=== PATIENT | female | born 1990 | race Caucasian/White ===

== ENCOUNTER 2017-01-06 02:34 | Emergency (ER) | payer SELFPAY ==
[~2017-01-06] VITALS: Ht 162.6 cm; Wt 61.2 kg
[2017-01-06 02:59] VITALS: BP 124/84
[2017-01-06] MEDS ORDERED: LIDOCAINE 1% / SOD BICARB 8.4% 20 ML VIAL. IJ ONE ×2 (04:17→04:30)
[2017-01-06] MEDS ORDERED: CEPH-264 PO (04:51)
[2017-01-06] MEDS ORDERED: SULF1TAB24 PO (04:51)
[2017-01-06] MEDS ORDERED: IBUP-1060 PO (04:51)
--- NOTE | 2017-01-06 04:51 | PHYS DOC ---
Past Medical History Past Medical History: Bipolar, Depression Additional Past Medical Histor: ADD Past Surgical History: Other Additional Past Surgical Histo: EAR TUBES Alcohol Use: None Drug Use: Amphetamine, Heroin, Marijuana Adult General Chief Complaint Chief Complaint: SKIN RASH/ABSCESS [facility] HPI This is a 26-year-old female who admits to injecting herself with illicit drugs who developed a large area swelling and redness to her right forearm that is consistent with an abscess and cellulitis. She denies any significant past medical history. She denies any history of MRSA. She rates her pain an 8 out of 10 all localized to the right forearm. She denies any nausea or vomiting. She denies any fever or chills. Review of Systems Review of Systems Constitutional: Denies fever or chills [] Eyes: Denies change in visual acuity, redness, or eye pain [] HENT: Denies nasal congestion or sore throat [] Respiratory: Denies cough or shortness of breath [] Cardiovascular: No additional information not addressed in HPI [] GI: Denies abdominal pain, nausea, vomiting, bloody stools or diarrhea [] : Denies dysuria or hematuria [] Musculoskeletal: Denies back pain or joint pain [] Integument: Denies rash or skin lesions [] Neurologic: Denies headache, focal weakness or sensory changes [] Endocrine: Denies polyuria or polydipsia [] Current Medications Current Medications Current Medications Medications (Trade) Dose Ordered Sig/[facility] Start Time Stop Time Status Last Admin Dose Admin Ketorolac Tromethamine (Toradol Im) 60 mg 1X ONCE 01/06/17 05:00 01/06/17 05:01 DC 01/06/17 04:51 60 MG Lidocaine/Sodium Bicarbonate (Buffered Lidocaine 1%) 20 ml 1X ONCE 01/06/17 04:30 01/06/17 04:31 DC 01/06/17 04:30 20 ML Allergies Allergies Allergies Coded Allergies Type Severity Reaction Last Updated Verified No Known Drug Allergies 02/09/16 No Physical Exam Physical Exam Constitutional: Well developed, well nourished, no acute distress, non-toxic appearance. [] HENT: Normocephalic, atraumatic, bilateral external ears normal, oropharynx moist, no oral exudates, nose normal. [] Eyes: PERRLA, EOMI, conjunctiva normal, no discharge. [] Neck: Normal range of motion, no tenderness, supple, no stridor. [] Cardiovascular:Heart rate regular rhythm, no murmur [] Lungs & Thorax: Bilateral breath sounds clear to auscultation [] Abdomen: Bowel sounds normal, soft, no tenderness, no masses, no pulsatile masses. [] Skin: Warm, dry, no erythema, no rash. [] Back: No tenderness, no CVA tenderness. [] Extremities: Large area of redness and swelling to the right forearm c/w with an abscess and cellulitis, no cyanosis, no clubbing, ROM intact, no edema. [] Neurologic: Alert and oriented X 3, normal motor function, normal sensory function, no focal deficits noted. [] Psychologic: Affect normal, judgement normal, mood normal. [] Current Patient Data Vital Signs Vital Signs Date Time Temp Pulse Resp B/P Pulse Ox O2 Delivery O2 Flow Rate FiO2 01/06/17 02:59 98.5 92 16 124/84 100 Room Air 98.5 EKG EKG [] Radiology/Procedures Radiology/Procedures [] Course & Med Decision Making Course & Med Decision Making Pertinent Labs and Imaging studies reviewed. (See chart for details) This 26-year-old female who has a abscess and cellulitis on her right forearm had an incision and drainage of the abscess with a packing placed. I will be also placing her on Bactrim and Keflex due to the source of the infection. She will follow closely with her primary care doctor in the next 48 hours for wound re-eval and gauze removal. I gave her strict instruction to return if her swelling should worsen or her redness should increase in size. There is no indication to perform any laboratory workup at this time. Dragon Disclaimer Dragon Disclaimer This electronic medical record was generated, in whole or in part, using a voice recognition dictation system. Incision and Drainage Indication: abscess Procedure: The patient was positioned appropriately. Local anesthesia was approximately 7 ml of 1% percent buffered lidocaine . An incision was then made over the apex of the lesion and a large amount of serosanguineous and purulent material was expressed. The drainage cavity was irrigated and packed with sterile gauze. The patients tetanus status updated as needed. The patient tolerated the procedure well. Complications: none. Departure Departure Impression: Primary Impression: Abscess Disposition: 01 HOME, SELF-CARE Admitting Physician: Other Condition: STABLE Referrals: NO PCP (PCP) Patient Instructions: Abscess, Care After Additional Instructions: Please follow up with your primary doctor in the next 2 days to have your wound rechecked. Take your antibiotic as prescribed. Return to the ER if you develop any worsening of your pain or notice any fever or increase in redness or swelling. Scripts Cephalexin (Keflex)500 Mg [id number] Mg PO QID #40 CAP Prov:URMILA GUIDRY DO 01/06/17 Sulfamethoxazole/Trimethoprim (Bactrim Ds Tablet)1 Each Tablet1 Tab PO BID #20 TAB Prov:URMILA GUIDRY DO 01/06/17 Ibuprofen 800 Mg [id number] Mg PO PRN Q6HRS PRN INFLAMMATION #20 TAB Prov:URMILA GUIDRY DO 01/06/17 URMILA GUIDRY DO Jan 06, 2017 04:51
[2017-01-06] MEDS ORDERED: KETOROLAC TROMETHAMINE 60 MG/2 ML SYRINGE. IM ONE (05:00)
== END 2017-01-06 05:17 | disposition home or self-care (01) ==
LOC: ER 02:34
DX: L02.413 Cutaneous abscess of right upper limb (principal); F31.9 Bipolar disorder, unspecified; F32.9 Major depressive disorder, single episode, unspecified; F98.8 Other specified behavioral and emotional disorders with onset usually occurring in childhood and adolescence; F12.10 Cannabis abuse, uncomplicated; F15.10 Other stimulant abuse, uncomplicated; F11.10 Opioid abuse, uncomplicated; Z96.22 Myringotomy tube(s) status
CPT/HCPCS: 10060; 96372; 99283; J1885

== ENCOUNTER 2017-07-05 02:36 | Emergency (ER) | payer SELFPAY ==
[~2017-07-05] VITALS: Ht 162.6 cm; Wt 59.0 kg
[~2017-07-05 02:36] MED LIST: CEPH-264 PO; IBUP-1060 PO; SULF1TAB24 PO
[2017-07-05 02:50] VITALS: BP 125/89
[2017-07-05] MEDS ORDERED: SMZ/TMP 800/160MG TABLET. PO ONE (03:45)
[2017-07-05] MEDS ORDERED: IBUPROFEN 600 MG TABLET. PO ONE (03:45)
[2017-07-05] MEDS ORDERED: SULF1TAB24 PO (03:55)
[2017-07-05] MEDS ORDERED: IBUP-1007 PO (03:55)
--- NOTE | 2017-07-05 03:55 | PHYS DOC ---
Past Medical History Past Medical History: Bipolar, Depression Additional Past Medical Histor: ADD Past Surgical History: Other Additional Past Surgical Histo: EAR TUBES Alcohol Use: None Drug Use: Amphetamine, Heroin, Marijuana, Methamphetamine Adult General Chief Complaint Chief Complaint: MULTIPLE COMPLAINTS [facility] HPI Patient is a 27 year old [f__sex] who presents with [] Review of Systems Review of Systems Constitutional: Denies fever or chills [] Eyes: Denies change in visual acuity, redness, or eye pain [] HENT: Denies nasal congestion or sore throat [] Respiratory: Denies cough or shortness of breath [] Cardiovascular: No additional information not addressed in HPI [] GI: Denies abdominal pain, nausea, vomiting, bloody stools or diarrhea [] : Denies dysuria or hematuria [] Musculoskeletal: Denies back pain or joint pain [] Integument: Denies rash or skin lesions [] Neurologic: Denies headache, focal weakness or sensory changes [] Endocrine: Denies polyuria or polydipsia [] Current Medications Current Medications Current Medications Medications (Trade) Dose Ordered Sig/[facility] Start Time Stop Time Status Last Admin Dose Admin Ibuprofen (Motrin) 600 mg 1X ONCE 07/05/17 03:45 07/05/17 03:46 UNV 07/05/17 03:47 600 MG Trimethoprim/ Sulfamethoxazole (Bactrim Ds) 2 tab 1X ONCE 07/05/17 03:45 07/05/17 03:46 UNV 07/05/17 03:47 2 TAB Allergies Allergies Allergies Coded Allergies Type Severity Reaction Last Updated Verified No Known Drug Allergies 02/09/16 No Physical Exam Physical Exam Constitutional: Well developed, well nourished, no acute distress, non-toxic appearance. [] HENT: Normocephalic, atraumatic, bilateral external ears normal, oropharynx moist, no oral exudates, nose normal. [] Eyes: PERRLA, EOMI, conjunctiva normal, no discharge. [] Neck: Normal range of motion, no tenderness, supple, no stridor. [] Cardiovascular:Heart rate regular rhythm, no murmur [] Lungs & Thorax: Bilateral breath sounds clear to auscultation [] Abdomen: Bowel sounds normal, soft, no tenderness, no masses, no pulsatile masses. [] Skin: Warm, dry, no erythema, no rash. [] Back: No tenderness, no CVA tenderness. [] Extremities: No tenderness, no cyanosis, no clubbing, ROM intact, no edema. [] Neurologic: Alert and oriented X 3, normal motor function, normal sensory function, no focal deficits noted. [] Psychologic: Affect normal, judgement normal, mood normal. [] Current Patient Data Vital Signs Vital Signs Date Time Temp Pulse Resp B/P (MAP) Pulse Ox O2 Delivery O2 Flow Rate FiO2 07/05/17 02:50 98.5 92 18 125/89 (101) 100 Room Air 98.5 Lab Values Laboratory Tests Test 07/05/17 02:01 POC Urine HCG, Qualitative Hcg negative (Negative) EKG EKG [] Radiology/Procedures Radiology/Procedures [] Course & Med Decision Making Course & Med Decision Making Pertinent Labs and Imaging studies reviewed. (See chart for details) [] Dragon Disclaimer Dragon Disclaimer This electronic medical record was generated, in whole or in part, using a voice recognition dictation system. Departure Departure Impression: Primary Impression: Cellulitis Additional Impressions: Toothache Methamphetamine abuse Heroin abuse Disposition: HOME, SELF-CARE Condition: IMPROVED Referrals: NO PCP (PCP) Patient Instructions: Cellulitis, Polysubstance Abuse, Toothache-Brief Scripts Ibuprofen (IBUPROFEN) 600 Mg Tablet 600 MG PO PRN Q6HRS Y for PAIN, #20 TAB Prov: HOUSTON BOTELLO MD 07/05/17 Sulfamethoxazole/Trimethoprim (BACTRIM DS TABLET) 1 Each Tablet 2 TAB PO BID for 10 Days, TAB Prov: HOUSTON BOTELLO MD 07/05/17 Problem Qualifiers HOUSTON BOTELLO MD Jul 05, 2017 03:55
== END 2017-07-05 04:00 | disposition home or self-care (01) ==
LOC: ER 02:36
DX: L03.90 Cellulitis, unspecified (principal); K08.89 Other specified disorders of teeth and supporting structures; F15.10 Other stimulant abuse, uncomplicated; F11.10 Opioid abuse, uncomplicated; F31.9 Bipolar disorder, unspecified; F98.8 Other specified behavioral and emotional disorders with onset usually occurring in childhood and adolescence; Z96.22 Myringotomy tube(s) status
CPT/HCPCS: 81025; 99283